=== PATIENT | female | born 1995 | race Caucasian/White ===

== ENCOUNTER 2025-04-29 12:55 | Emergency (ER) | payer SELFPAY ==
--- OUTSIDE RECORDS SUMMARY | 2025-04-29 13:01 | XMS_ITS | Patient Health Record ---
Author Organization [facility] Address [address] [place] [address] Support Name Relationship Address Phone Abiola Amato Guarantor Unknown [phone] Reason For Referral No Information Immunizations Vaccine Route Administration Date Status Comme nts Influenza (whole), CPT 61180 Inactive Unknown 08/22/2018 Administered Influenza (whole), CPT 36926 Inactive Unknown 11/21/2018 Administered Plan Of Treatment No Information
[2025-04-29 13:23] VITALS: BP 145/96; PULSE 84; TEMP 36.7; O2SAT 99; BMI 21.4
--- NOTE | 2025-04-29 14:01 | W.ED.UPPEXIN ---
HPI - Extremity Injury (Upper) General: Chief Complaint: Extremity Injury, Upper Stated Complaint: R arm pain Time Seen by Provider: 04/29/25 13:51 Source: patient Mode of arrival: ambulatory Limitations: no limitations History of Present Illness: Patient is a 49-year-old female presents to ED today with complaint of right arm pain that began 4 days ago following a fall. Patient states she accidentally tripped over her dog. Patient complains of pain from her right shoulder all the way down to her right pinky finger. Pain is worse with movement. Denies numbness, tingling, loss of sensation to the extremity. No other injuries or complaints at this time. MD complaint: injury to: right, shoulder, arm, elbow, forearm, wrist and hand Onset (ago): day(s) Other Extremity Injury: Right: fingers, hand, wrist, elbow, arm and shoulder Other injuries: none Place: home Severity: moderate Relieving factors: immobilization Exacerbating factors: movement of extremity Context: fall Associated symptoms: Reports no associated symptoms; Denies neck pain Related Data Allergies Allergy/AdvReac Type Severity Reaction Status Date / Time Sulfa (Sulfonamide Allergy Unknown Verified 04/29/25 13:30 Antibiotics) Review of Systems Musc: Reports: extremity pain; Denies: neck pain, back pain, extremity swelling, joint pain, joint swelling or joint redness Skin/Breast: Reports: other (abrasion near R elbow) Neuro: Denies: numbness in extremities or sensory changes Physical Exam Const: COMMON NORMALS: no acute distress, average body habitus, no limitations, healthy appearing, alert and well nourished Extremity: COMMON NORMALS: capillary refill normal GENERAL: Yes normal exam except as noted RIGHT UPPER EXTREMITY: Yes shoulder joint, Yes elbow joint, Yes lower arm, Yes wrist and Yes hand & digits OTHER: pt has tenderness from shoulder all the way down to her R pinky finger; there are no obvious deformities; each area carefully inspected-she seems to have normal passive ROM of shoulder joint; no obvious humerus pain; she has fairly normal passive ROM of elbow with some discomfort; tender through her forearm with abrasion but no bony deformity or edema; distal pulses/cap refill/sensation all normal Neuro: COMMON NORMALS: moves all extremities, no focal motor deficits and no sensory deficits noted SENSORIUM/ORIENTATION: Yes alert Course Vital Signs: Vital signs: Vital Signs Temperature 98.0 F 04/29/25 13:23 Pulse Rate 84 04/29/25 13:23 Blood Pressure 145/96 04/29/25 13:23 Pulse Oximetry 99 04/29/25 13:23 Oxygen Delivery Me thod Room Air 04/29/25 13:23 MDM - Extremity Injury (Upper) Medical Decision Making Personal interpretation of patient's x-rays were unremarkable. She be placed in a sling for comfort. Recommend follow-up with primary care later this week if symptoms are not improving. Medical Records I reviewed the patient's medical records. XR interpretation done by ED provider, pending radiology final review Discharge Plan Discharge Patient Disposition: Home Clinical Impression: Contusion of arm, right, multiple sites Qualifiers: Encounter type: initial encounter Qualified Code(s): S40.021A - Contusion of right upper arm, initial encounter Condition: Stable Discharge Orders: Discharge ED (Routine); Ordered 04/29/25 Ordered By: Karolina Ham Referrals: Cherelle Montoya MD [Primary Care Provider, Internal Medicine] Patient Instructions: Patient Portal & [facility] Instructions Activity Restrictions/Additional Instructions: As we discussed, we will contact you if the official radiology read sees any discrepancies on your x-rays. Please follow-up with primary care later this week if symptoms are not improving. Stand Alone Forms: Work/School Release Print Language: Kazakh Coding Level of Care Code ED Geophysical Data Technician for Jana Carrillo
--- NOTE | 2025-04-29 14:05 | XRR_ITS ---
PROCEDURE INFORMATION: Exam: XR Right Elbow Exam date and time: 04/29/2025 2:12 PM Age: 29 years old Clinical indication: Injury or trauma; Fall; Blunt trauma (contusions or hematomas); Elbow; Right TECHNIQUE: Imaging protocol: Radiologic exam of the right elbow. Views: 3 or more views. COMPARISON: CR XR forearm RT 2V [id number] 04/29/2025 2:11 PM FINDINGS: Bones/joints: There is no evidence for acute fracture or malalignment. Soft tissues: Normal. XR/XR elbow RT min 3V* [id number] IMPRESSION: No acute findings.
--- NOTE | 2025-04-29 14:05 | XRR_ITS ---
PROCEDURE INFORMATION: Exam: XR Right Forearm Exam date and time: 04/29/2025 2:11 PM Age: 29 years old Clinical indication: Injury or trauma; Fall; Blunt trauma (contusions or hematomas); Arm, lower; Right; Additional info: Fall/injury TECHNIQUE: Imaging protocol: Radiologic exam of the right forearm. Views: 2 views. COMPARISON: CR XR hand RT min 3V* [id number] 04/29/2025 2:09 PM FINDINGS: Bones/joints: There is no evidence for acute fracture or malalignment. Soft tissues: Normal. XR/XR forearm RT 2V [id number] IMPRESSION: No acute findings.
--- NOTE | 2025-04-29 14:05 | XRR_ITS ---
PROCEDURE INFORMATION: Exam: XR Right Hand Exam date and time: 04/29/2025 2:09 PM Age: 29 years old Clinical indication: Injury or trauma; Fall; Blunt trauma (contusions or hematomas); Hand; Right; Additional info: Fall/injury TECHNIQUE: Imaging protocol: Radiologic exam of the right hand. Views: 3 or more views. COMPARISON: No relevant prior studies available. FINDINGS: Bones/joints: There is no evidence for acute fracture or malalignment. Soft tissues: Normal. XR/XR hand RT min 3V* [id number] IMPRESSION: No acute findings.
[2025-04-29 15:09] VITALS: BP 121/83; PULSE 67; O2SAT 98
== END 2025-04-29 15:11 | disposition home or self-care (01) ==
PROVIDERS: Emergency Provider Physician Assistant; PCP Internal Medicine
DX: S40.021A Contusion of right upper arm, initial encounter (principal); W01.0XXA Fall on same level from slipping, tripping and stumbling without subsequent striking against object, initial encounter
CPT/HCPCS: 73080; 73090; 73130; 99284; A4565; J9999